=== PATIENT | female | born 1965 | race Caucasian/White ===

== ENCOUNTER 2018-06-03 21:27 | Emergency (ER) | payer MEDICARE, MEDICAID ==
[~2018-06-03] VITALS: Ht 172.7 cm; Wt 104.3 kg
[~2018-06-03 21:27] MED LIST: ASPIRIN EC325 MG ORAL; CARDIAZEM CD240 MG ORAL; FLECAINIDE ACE100 MG ORAL; NKM
--- NOTE | 2018-06-03 22:23 | NUR ---
ED Nurse Note: Received report. Pt from home, AAOx4, ambulatory, c/o back pain 5-12/26. Pt stable on RA. Pt has hx of AFIB but current VSS. Will carry out orders and continue to monitor.
[2018-06-03 22:27] VITALS: BP 121/86
--- NOTE | 2018-06-03 22:43 | Emergency Room Report ---
History of Present Illness General Chief Complaint: Pain Source: Patient Present Illness Allergies: Coded Allergies: PENICILLINS (Unverified Allergy, Unknown, 07/17/15) Uncoded Allergies: PENICILLIN (Allergy, Unknown, 07/16/15) Patient History Last Menstrual Period: 2 weeks ago Now: No : 6 Para: 4 Reviewed Nursing Documentation: PMH: Agreed; PSxH: Agreed Nursing Documentation-PMH Hx Cardiac Problems: Yes - A FIB Hx Cancer: No Hx Gastrointestinal Problems: No - Gallbladder and Hernia Surgery Hx Neurological Problems: Yes - ACUSTIC NEUROMA (BRAIN TUMOR) Hx Tremors: Yes - 10years ago, Brain Tumor Hx Neurologic Surgery: Yes - 10years ago, Brain Tumor Physical Exam Vital Signs Date Time Temp Pulse Resp B/P (MAP) Pulse Ox O2 Delivery O2 Flow Rate FiO2 06/03/18 22:09 98.1 84 16 140/81 99 Room Air Medical Decision Making Last Vital Signs Date Time Temp Pulse Resp B/P (MAP) Pulse Ox O2 Delivery O2 Flow Rate FiO2 06/03/18 22:27 98.5 21 121/86 98 Room Air 06/03/18 22:09 84 Nadir Zamarripa MD Jun 03, 2018 22:43
[2018-06-03] MEDS ORDERED: Ketorolac 60mg Inj IM ONE (22:45)
[2018-06-04 00:11] LABS: APPEARANCE,URINE CLEAR; BILIRUBIN, URINE NEGATIVE (NEGATIVE); GLUCOSE, URINE (UA) NEGATIVE (NEGATIVE); KETONES,URINE NEGATIVE (NEGATIVE); LEUKOCYTE ESTERASE ,URINE 1+ (NEGATIVE); NITRITE,URINE NEGATIVE (NEGATIVE); PH,URINE 5 (4.5-8.0); PROTEIN,URINE 1+ (NEGATIVE); UROBILINOGEN,URINE 1 MG/DL (0.0-1.0)
[2018-06-04 00:15] VITALS: BP 107/74
[2018-06-04 00:18] LABS: COLOR,URINE YELLOW
[2018-06-04] MEDS ORDERED: NORCO 5-325 TA1 EACH ORAL (00:46)
[2018-06-04] MEDS ORDERED: BACTRIM DS TAB1 EAC1 ORAL (00:46)
[2018-06-04] MEDS ORDERED: CEPHALEXIN500 MG ORAL (01:08)
--- NOTE | 2018-06-04 01:20 | NUR ---
ED Nurse Note: Pt cleared for discharge per ERMD. AAOx4. NAD. VSS. Pt given prescriptions and discharge instructions; verbalized understanding. ID band removed. Pt ambulated out with family member and all personal [place] Addendum: 06/04/18 at 0122 by [facility] belongings.
[2018-06-04 01:22] VITALS: BP 107/74
--- NOTE | 2018-06-04 10:46 | Diagnostic Imaging Report ---
Indication: Right flank and abdominal pain Technique: Grayscale and duplex Doppler imaging of the abdomen performed. Comparison: None Findings: The liver is echogenic consistent with fatty infiltration.. The gallbladder is absent. The demonstrated part of the pancreas, aorta and IVC show no abnormalities. Both kidneys appear unremarkable. The spleen is normal in size. There is no biliary ductal dilatation identified. CBD is 3.8 mm. Doppler evaluation of the main portal vein shows patency. There is no ascites. No hydronephrosis seen. There is a left renal cyst measuring 1.2 cm. Impression: No acute findings. Fatty liver. Left renal cyst Status post cholecystectomy
--- NOTE | 2018-06-04 11:47 | Diagnostic Imaging Report ---
Indication: Back pain Comparison: None Findings: 3 views of the lumbar spine were obtained. There is anterolisthesis at L4-5. There is suggestion of multilevel narrowing of the intervertebral discs. Sclerosis of the lower lumbar facets noted indicative of arthropathy. The study is significantly limited technically. IMPRESSION: Degenerative changes as described above. The study is technically limited
== END 2018-06-04 01:29 | disposition home or self-care (01) ==
LOC: EMR 22:39
DX: M54.9 Dorsalgia, unspecified (principal); I48.91 Unspecified atrial fibrillation; Z86.011 Personal history of benign neoplasm of the brain; Z88.0 Allergy status to penicillin
CPT/HCPCS: 72110; 76700; 81003; 87086; 96372; 99284